=== PATIENT | female | born 1945 | race Hispanic/Latino ===

== ENCOUNTER 2020-08-04 12:09 | Emergency (ER) | payer MEDICARE, OTHER ==
[2020-08-04] MEDS ORDERED: KETOROLAC 30 MG/1 ML INJ IV ONE (12:29)
[2020-08-04] MEDS ORDERED: MORPHINE 4 MG/1 ML INJ IV ONE (12:29)
[2020-08-04] MEDS ORDERED: LIDOCAINE (1%) 10 MG/1 ML VIAL 20 ML MDV INFILTRATI ONE (12:36)
[2020-08-04 12:51] LABS: Basophils # (Auto) 0.1 K/mm3 (0.0-0.1); Basophils % (Auto) 0.8 % (0.0-1.8); Eosinophils # (Auto) 0.3 K/mm3 (0.0-0.4); Eosinophils % (Auto) 3.9 % (0.0-4.3); Hemoglobin 14.4 gm/dl (10.1-14.3); Lymphocytes # (Auto) 1.5 K/mm3 (1.2-5.4); Lymphocytes % (Auto) 20.9 % (13.4-35.0); Mean Corpuscular HGB Conc 34 % (30-34); Mean Corpuscular Volume 96 fl (79-97); Monocytes # (Auto) 0.6 K/mm3 (0.0-0.8); Monocytes % (Auto) 8.1 % (0.0-7.3); Platelet Count 198 K/mm3 (140-440); Red Blood Count 4.36 M/mm3 (3.65-5.03); Red Cell Distribution Width 14.9 % (13.2-15.2)
[2020-08-04 13:01] LABS: BUN/Creatinine Ratio 17; Blood Urea Nitrogen 15 mg/dL (7-17); Calcium 9.5 mg/dL (8.4-10.2); Hemolysis Index 38
--- NOTE | 2020-08-04 13:43 | XRay Report ---
. LEFT FOREARM 2 VIEW(S) INDICATION / CLINICAL INFORMATION: Trauma, deformity, pain COMPARISON: None available. FINDINGS: BONES / JOINT(S): Acute mildly displaced transverse fractures of distal third left radius and ulna ju st proximal to the ORIF plate and screws from old healed distal radius and ulna fracture deformities. 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 SOFT TISSUES: No significant abnormality. ADDITIONAL FINDINGS: None. Signer Name: Mak Painter MD Signed: 08/04/2020 1:39 PM Workstation Name: [id number]
--- NOTE | 2020-08-04 13:44 | XRay Report ---
. LEFT WRIST to VIEW(S) INDICATION / CLINICAL INFORMATION: Trauma, deformity, pain COMPARISON: None available. FINDINGS: BONES / JOINT(S): Acute moderately displaced fractures of distal third left radius and ulna with dors al angulation of distal fracture fragments. Old healed fracture deformities of left distal radius and ulna status post ORIF with plate and screws. 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 Impression SOFT TISSUES: No significant abnormality. ADDITIONAL FINDINGS: Osteopenia Signer Name: Mak Painter MD Signed: 08/04/2020 1:40 PM Workstation Name: [id number]
[2020-08-04] MEDS ORDERED: HYDROcodone/ACETAMINOPHEN 7.5-325MG TAB PO ONE (15:16)
[2020-08-04] MEDS ORDERED: CLINDAMYCIN 300 MG CAP PO ONE (15:16)
--- NOTE | 2020-08-04 16:17 | Emergency Department Report ---
ED Extremity Problem HPI - General Chief complaint: Extremity Injury, Upper Stated complaint: FELL/ARM INJURY Time Seen by Provider: 08/04/20 12:27 Source: patient Mode of arrival: Wheelchair Limitations: No Limitations - History of Present Illness Initial comments: Patient is a 74-year-old female with past medical history of GERD and ORIF of the left distal radius and ulna who is presenting status post fall. Patient has obvious deformity to the left forearm. Patient states she simply tripped tripped and fell. She states she is relatively active and goes for daily walks. Patient is complaining of some significant pain at the mid left forearm. She has a small scrape on the left elbow which is relatively nontender. There is no head injury or loss of consciousness. Severity scale (0 -10): 8 - Related Data Previous Rx's Medication Instructions Recorded Last Taken Type Clindamycin [Clindamycin CAP] 300 mg PO Q8H #21 cap 08/04/20 Unknown Rx Ondansetron [Zofran Odt] 4 mg PO Q8HR #10 tab.rapdis 08/04/20 Unknown Rx traMADoL [Ultram] 50 mg PO Q6HR PRN #12 tablet 08/04/20 Unknown Rx Allergies Allergy/AdvReac Type Severity Reaction Status Date / Time Penicillins Allergy Anaphylaxis Verified 08/04/20 12:20 ED Review of Systems ROS: Stated complaint: FELL/ARM INJURY Other details as noted in HPI Comment: All other systems reviewed and negative ED Past Medical Hx - Past Medical History Previous Medical History?: Yes Hx GERD: Yes - Surgical History Past Surgical History?: Yes Additional Surgical History: Fracture LUE - Medications Home Medications: Home Medications Medication Instructions Recorded Confirmed Last Taken Type Clindamycin [Clindamycin CAP] 300 mg PO Q8H #21 cap 08/04/20 Unknown Rx Ondansetron [Zofran Odt] 4 mg PO Q8HR #10 tab.rapdis 08/04/20 Unknown Rx traMADoL [Ultram] 50 mg PO Q6HR PRN #12 tablet 08/04/20 Unknown Rx ED Physical Exam - General Limitations: No Limitations General appearance: alert, in distress - Head Head exam: Present: atraumatic, normocephalic - Eye Eye exam: Present: normal appearance, PERRL, EOMI - ENT ENT exam: Present: mucous membranes moist - Neck Neck exam: Present: normal inspection - Respiratory Respiratory exam: Present: normal lung sounds bilaterally. Absent: respiratory distress, wheezes, rales, rhonchi - Cardiovascular Cardiovascular Exam: Present: regular rate, normal rhythm, normal heart sounds. Absent: systolic murmur, diastolic murmur, rubs, gallop - GI/Abdominal GI/Abdominal exam: Present: soft, normal bowel sounds. Absent: distended, tenderness, guarding - Extremities Exam Extremities exam: Present: normal inspection - Expanded Upper Extremity Exam Left Shoulder Exam: Present: normal inspection Elbow exam: Present: other (skin tear) Forearm Wrist exam: Present: tenderness, swelling, deformity Hand Wrist exam: Present: swelling, other (On the ulnar side approximately 4 cm from the base of the hand on the volar surface there is a 1 cm puncture type wound. Minimal bleeding.) Vascular: Absent: vascular compromise - Back Exam Back exam: Present: normal inspection - Neurological Exam Neurological exam: Present: alert, oriented X3 - Psychiatric Psychiatric exam: Present: normal affect, normal mood - Skin Skin exam: Present: warm, dry, intact, normal color. Absent: rash ED Course Vital Signs 08/04/20 12:23 Temperature 98.1 F Pulse Rate 66 Respiratory 18 Rate Blood Pressure 119/57 [Right] O2 Sat by Pulse 97 Oximetry ED Medical Decision Making - Lab Data Result diagrams: 08/04/20 12:38 08/04/20 12:38 - Radiology Data Ordering Physician: SADAF DUARTE MD Date of Service: 08/04/20 Procedure(s): XR wrist 2V LT Accession Number(s): [id number] cc: SADAF DUARTE MD Fluoro Time In Minutes: . LEFT WRIST to VIEW(S) INDICATION / CLINICAL INFORMATION: Trauma, deformity, pain COMPARISON: None available. FINDINGS: BONES / JOINT(S): Acute moderately displaced fractures of distal third left radius and ulna with dorsal angulation of distal fracture fragments. Old healed fracture deformities of left distal radius and ulna status post ORIF with plate and screws. 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 Impression SOFT TISSUES: No significant abnormality. ADDITIONAL FINDINGS: Osteopenia Signer Name: Mak Painter MD Signed: 08/04/2020 1:40 PM Workstation Name: [employer] - Medical Decision Making Spoke with the patient's orthopedic surgeon briefly about the case. He states he was unavailable this weekend but stated that we should call orthopedic coverage here in the hospital. Spoke with Dr. Wilson who actually did see the patient was x-rays who stated that this was a grade 1 open fracture and could be discharged home with outpatient follow-up. States he can follow-up with Dr. Fung or himself. Patient is expressing that she does want to go home. Patient was placed in a sugar tong splint. I was able to straighten the patient's arm out after performing a hematoma block. Patient tolerated procedure well. There was better alignment of the patient's arm. Placed a Xeroform gauze over the small puncture wound. Patient was a difficult stick as far as giving IV medications. Pain meds were given IM and the patient was given 600 mg p.o. clindamycin will continue clindamycin. Patient does have a significant penicillin allergy. Critical care attestation.: If time is entered above; I have spent that time in minutes in the direct care of this critically ill patient, excluding procedure time. ED Disposition Clinical Impression: Forearm fracture Qualifiers: Encounter type: initial encounter Fracture type: open Open fracture type: open type I or II Laterality: left Qualified Code(s): S52.92XB - Unspecified fracture of left forearm, initial encounter for open fracture type I or II Disposition: DC-01 TO HOME OR SELFCARE Is pt being admited?: No Does the pt Need Aspirin: No Condition: Stable Instructions: Arm Fracture in Adults (ED), Splint Care (ED) Additional Instructions: Please follow-up with your orthopedic doctor or the orthopedic doctor we have here at [facility]. Referrals: BARBRA WILSON MD [Staff Physician] - 3-5 Days Time of Disposition: 16:24
[2020-08-04 17:50] VITALS: BP 136/67
== END 2020-08-04 17:51 | disposition home or self-care (01) ==
LOC: ED 12:09
DX: S52.502A Unspecified fracture of the lower end of left radius, initial encounter for closed fracture (principal); S52.602A Unspecified fracture of lower end of left ulna, initial encounter for closed fracture; K21.9 Gastro-esophageal reflux disease without esophagitis; Z98.890 Other specified postprocedural states; Z79.2 Long term (current) use of antibiotics; Z79.899 Other long term (current) drug therapy; Z88.0 Allergy status to penicillin; W01.0XXA Fall on same level from slipping, tripping and stumbling without subsequent striking against object, initial encounter; Y93.89 Activity, other specified; Y92.89 Other specified places as the place of occurrence of the external cause; Y99.8 Other external cause status
CPT/HCPCS: 29125; 36415; 73090; 73100; 80048; 85025; 96374; 96375; 99284; J1885; J2270